=== PATIENT | male | born 1945 | race Caucasian/White ===

== ENCOUNTER 2017-05-06 19:29 | Inpatient (IN) | payer OTHER, MEDICAID ==
[~2017-05-06] VITALS: Ht 172.7 cm; Wt 76.3 kg
[~2017-05-06 19:29] MED LIST: ALBUTEROL0.09 MG/A2 IH; ALD25 PO; ASPIR 8181 MG PO; ATORVASTATIN CA40 M1 PO; BG MC; BREO ELLIPTA1 PO1 IH; COL100 PO; COZAAR100 MG PO; D-20001 TAB PO; DEXPF IV; DULCOLAX5 MG PO; FLA500 PO; FLO4 PO; FUROSEMIDE20 MG PO; GABAPENTIN100 M2 PO; GABAPENTIN300 M3 PO; GLIPIZIDE10 MG; GLIPIZIDE10 MG PO; GLU10XL PO; GOOD SENSE ASPI81 M3 PO; HUMULIN R100 U/1 M1 SC; LAC PO; LAC30L PO; LASIX20 MG PO; LEVAQUIN500 MG PO; LIPI10 PO; LORAZEPAM1 MG PO; LOSARTAN POTAS100 M1 PO; MEDDP PO; METFORMIN HCL1000 MG PO; METFORMIN1000 M1 PO; NEU300 PO; PRE10 PO; PREDNISONE1 MG PO; PREDNISONE2.5 MG PO; PREDNISONE20 MG PO; PREDNISONE5 MG PO; PROAIR HFA0.09 MG/A1 INH; PULMICORT0.5 MG/2 M IH; Q-PAP325 MG PO; RES15 PO; SINGULAIR10 MG PO; TOP50 PO; TRAZODONE50 M1 PO; VITAMIN D32000 I2 PO; ZOS3PM IV
[2017-05-06 21:03] LABS: BASOPHIL % 0.5 % (0-2)
--- NOTE | 2017-05-06 21:13 | NUR ---
PT IS SITTING IN BED IN NAD. PT'S DAUGHTER IS BEDSIDE AND HISTORIAN. PT'S PRIMARY LANGUAGE IS COMORAN. PT'S DAUGHTER STATES THAT PT HAS HAD INCREASED WEAKNESS AND CONFUSION SINCE 05/05/17. PT HAD STARTED NEW MEDICATION YESTERDAY BUT DAUGHTER STATES CONFUSION STARTED PRIOR TO THAT. PT'S DAUGHTER STATES THAT PT HAD MECH FALL LAST NIGHT WITH NO LOC, HITTING HIS HEAD AND BACK. NO DEFORMITIES NOTED. PT PLACED ON PRODUCTION SUPPORT SUPERVISOR, CALL LIGHT IS WITHIN REACH. WILL CONTINUE TO MONITOR.
[2017-05-06 21:20] LABS: PLATELET COUNT 524 x10^3mcL (130-400)
[2017-05-06 21:32] LABS: ALKALINE PHOSPHATASE 55 U/L (46-116); ALT/SGPT 11 U/L (16-63); AST/SGOT 14 U/L (15-37); BILIRUBIN TOTAL 0.2 mg/dL (0.20-1.00); CALCIUM 9.1 mg/dL (8.5-10.1); CHLORIDE SERUM 102 mmol/L (98-107); CREATININE SERUM 1.1 mg/dL (0.7-1.3); GLUCOSE SERUM 87 mg/dL (74-106); POTASSIUM SERUM 4.8 mmol/L (3.5-5.1); SODIUM SERUM 143 mmol/L (136-145)
[2017-05-06 21:33] LABS: CK-MB 1.8 ng/mL (0-3.6)
[2017-05-06 21:34] LABS: ALBUMIN 2.6 g/dL (3.4-5.0)
[2017-05-06 21:35] LABS: CARBON DIOXIDE 40.7 mmol/L (21-32)
--- NOTE | 2017-05-06 22:10 | NUR ---
PT'S DAUGHTER CONTACT INFORMATION. TOSHA CELL PHONE [phone] WORK NUMBER [phone]
[2017-05-06] MEDS ORDERED: FLA500 PO (22:19)
[2017-05-06] MEDS ORDERED: GLIPIZIDE10 M2 PO (22:19)
[2017-05-06] MEDS ORDERED: TRAZODONE50 M1 PO (22:19)
[2017-05-06] MEDS ORDERED: CEPHALEXIN500 MG PO (22:20)
[2017-05-06] MEDS ORDERED: DITROPAN XL5 MG PO (22:20)
[2017-05-06] MEDS ORDERED: TOPROL XL25 MG PO (22:21)
[2017-05-06] MEDS ORDERED: GLIMEPIRIDE2 M1 PO (22:21)
[2017-05-06] MEDS ORDERED: LOSARTAN POTAS100 M1 PO (22:21)
[2017-05-06] MEDS ORDERED: ATORVASTATIN CA20 M1 PO (22:21)
[2017-05-06] MEDS ORDERED: MONTELUKAST SOD10 M1 PO (22:22)
[2017-05-06] MEDS ORDERED: METFORMIN HYD1000 M2 PO (22:22)
[2017-05-06] MEDS ORDERED: FUROSEMIDE20 MG PO (22:22)
[2017-05-06] MEDS ORDERED: TAMSULOSIN HYD0.4 M1 PO (22:22)
[2017-05-06] MEDS ORDERED: NEU300 PO (22:23)
[2017-05-06] MEDS ORDERED: LORAZEPAM0.5 MG PO (22:23)
--- NOTE | 2017-05-06 23:05 | NUR ---
REPORT CALLED TO [facility]. ALL QUESTIONS AND CONCERNS ADDRESSED.
[2017-05-06 23:27] LABS: microscopic required? YES; urine erythrocyte 2+ (NEGATIVE)
[2017-05-06 23:53] LABS: AMPHETAMINE QUAL UR NONE DETECTED (NEG <=1000)
[2017-05-07] VITALS (7 sets, daily range): BP systolic 104–134; BP diastolic 50–65
--- NOTE | 2017-05-07 00:17 | NUR ---
RECEIVED PT FROM ED VIA DEONTE. TELE 34 PLACED ON PT READING NSR. IV NOTED TO RFA PATENT AND INTACT. CALL LIGHT WITHIN REACH. BED IN LOWEST POSITION AND SIDE RAILS UPX 2
--- NOTE | 2017-05-07 01:55 | NUR ---
LATE ENTRY: 0000H - AWAKE, ALERT, ABLE TO STATE NAME, . CONFUSED. SINUS RHYTHM ON TELE. BED ALARM ON. HOB ELEVATED 30 DEG. UPPER SIDE RAILS RAISED, BED IN LOWEST POSITION. INSTRUCTED ON USE OF CALL LIGHT TO CALL FOR ASSISTANCE, PLACED WITHIN EASY REACH. SALINE LOCK TO RIGHT ARM. BREATHING EVEN AND UNLABORED.
--- NOTE | 2017-05-07 02:34 | NUR ---
ON FALL PRECAUTIONS, SCDS TO BLE.
[2017-05-07 02:45] LABS: MAGNESIUM 2.1 mg/dL (1.8-2.4); PHOSPHOROUS 4.4 mg/dL (2.5-4.9)
[2017-05-07 02:47] LABS: CHOLESTEROL/HDL RATIO 3.2
[2017-05-07 02:51] LABS: FREE T4 1.12 ng/dL (0.76-1.46); FREE THYROXINE INDEX 2.4 ug/dL (1.4-4.5); T4(THYROXINE) 6.9 ug/dL (4.7-13.3)
--- NOTE | 2017-05-07 02:55 | NUR ---
LATE ENTRY: 0030H - FEET OFFLOADED FROM BED WITH PILLOWS.
--- NOTE | 2017-05-07 02:55 | NUR ---
EYES CLOSED, BREATHING EVEN AND UNLABORED. HOB KEPT ELEVATED 30 DEG. CALL LIGHT WITHIN EASY REACH.
[2017-05-07 02:59] LABS: T3 TOTAL 0.9 ng/mL
[2017-05-07 06:43] LABS: BASOPHIL % 0.3 % (0-2)
--- NOTE | 2017-05-07 06:45 | NUR ---
INFORMED DR. ARMIJO VIA PAGE GATE PT UNABLE TO TOLERATE BEING FLAT ON BED. ULTRASOUND UNABLE TO DO US CAROTID AND US KIDNEY. SQUEEGEER AND FORMER STATED THEY WILL COME BACK LATER AND TRY. ALSO INFORMED DR. ARMIJO VIA PAGE GATE THAT GLIPIZIDE HELD DUE TO BLOOD SUGAR ONLY 72 THIS AM.
[2017-05-07 06:51] LABS: PLATELET COUNT 467 x10^3mcL (130-400)
[2017-05-07 07:01] LABS: CALCIUM 8.9 mg/dL (8.5-10.1); CARBON DIOXIDE 38.5 mmol/L (21-32); CHLORIDE SERUM 103 mmol/L (98-107); GLUCOSE SERUM 69 mg/dL (74-106); PHOSPHOROUS 4.7 mg/dL (2.5-4.9); POTASSIUM SERUM 4.5 mmol/L (3.5-5.1); SODIUM SERUM 143 mmol/L (136-145)
--- NOTE | 2017-05-07 08:04 | NUR ---
RECEIVED PT FROM NIGHT NURSE IN NO ACUTE DISTRESS. AAOX3, APPEARS TO BE CONFUSED. HUNTER IN PLACE DRAINING YELLOW URINE. COLONOSCOPY IN PLACE, C/D/I. IVF INFUSING AT BEDSIDE. BED IN LOWEST POSITION. CALL LIGHT WITHIN REACH. WILL CONTINUE TO MONITOR.
--- NOTE | 2017-05-07 12:00 | NUR ---
HEEL FLOATER APPLIED TO R FOOT PER DR GARCIA
--- NOTE | 2017-05-07 14:01 | NUR ---
REHAB NOTES RECEIVED CANCELLATION ORDER FOR SWALLOW EVAL.
--- NOTE | 2017-05-07 18:53 | NUR ---
PT ASLEEP IN BED IN NO ACUTE DISTRESS. RESPIRATIONS EVEN AND UNLABORED ON 3L VIA NC. HEEL FLOATER IN PLACE TO R FOOT. SCD IN PLACE TO LLE. IVF INFUSING AT BEDSIDE. BED IN LOWEST POSITION. CALL LIGHT WITHIN REACH. WILL CONTINUE TO MONITOR.
--- NOTE | 2017-05-07 19:15 | NUR ---
WITH ORDERS TO OBTAIN MEDICAL RECORDS FROM [facility]. PT UNABLE TO SIGN FOR SELF. CALLED DAUGHTER JOSE BATISTA, LEFT MESSAGE TO CALL BACK.
--- NOTE | 2017-05-07 20:22 | NUR ---
RESP THERAPIST PLACED PT ON O2 VIA NASAL CANNULA DUE TO LOW O2 SAT. INSTRUCTED PT TO KEEP NASAL CANNULA ON. NOTED O2 SAT 100% ON OXYGEN.
--- NOTE | 2017-05-07 21:26 | NUR ---
PT UNABLE TO TAKE PO MEDS. VERY DROWSY, BARELY ABLE TO OPEN EYES WITH STRONG TACTILE STIMULI. BP 107/57, MAP 85, ME 98, O2 SAT 95% ON 2LPM OF O2 VIA NC. TEMP 98.9F RR 20. NOTED PT HAS RIGHT FACIAL DROOP. INFORMED DR. ARMIJO. DR. ARMIJO WENT INTO PT'S ROOM TO ASSESS PT. SHE STATED SHE WILL PUT IN NEW ORDERS.
--- NOTE | 2017-05-07 22:28 | NUR ---
CALLED RADIOLOGY REGARDING CT SCAN OF HEAD ORDERED. OPERATIONS SUPPORT SPECIALIST STATED THEY ARE AWARE OF ORDER AND WILL COME UP SOON THEY CAN.
--- NOTE | 2017-05-07 23:00 | NUR ---
BACK FROM CT. TRANSFERRED TO ROOM 255A. OPENS EYES SPONTANEOUSLY, BUT STILL VERY DROWSY. HOB KEPT ELEVATED 30 DEG. CALL LIGHT WITHIN EASY REACH. ON FALL PRECAUTIONS.
--- NOTE | 2017-05-08 01:52 | NUR ---
EYES CLOSED, BREATHING EVEN AND UNLABORED. ON 2LPM OF O2 VIA NC. NO MOANING OR GRIMACING NOTED. HOB KEPT ELEVATED 30 DEG. CALL LIGHT WITHIN EASY REACH. BED ALARM ON.
--- NOTE | 2017-05-08 04:51 | NUR ---
OPENED EYES SPONTANEOUSLY. AWAKE AND ALERT, SPEECH CLEAR. ASKED FOR WATER, DRANK WITHOUT COUGHING OR CHOKING. ASKED WHAT TIME IT WAS.
--- NOTE | 2017-05-08 05:26 | NUR ---
EYES CLOSED, BREATHING EVEN AND UNLABORED. HOB KEPT ELEVATED 30 DEG. ON 2LPM OF O2 VIA NC.
[2017-05-08 06:06] VITALS: BP 130/66
--- NOTE | 2017-05-08 06:14 | NUR ---
EYES CLOSED, OPENED EYES TO TACTILE STIMULI, BUT UNABLE TO TAKE PO MEDS TOO DROWSY. INFORMED DR. ARMIJO VIA PAGE GATE.
--- NOTE | 2017-05-08 06:49 | NUR ---
AWAKE AND ALERT, ABLE TO TAKE PO MEDS WITHOUT DIFFICULTY. ASKED TO TURN TV ON. WATCHING TV AT THIS TIME.
[2017-05-08 07:11] LABS: BASOPHIL % 0.3 % (0-2)
--- NOTE | 2017-05-08 07:16 | NUR ---
eyes closed, breathing even and unlabored on 2lpm of o2 via nc. zflex boot to right foot.
--- NOTE | 2017-05-08 07:18 | NUR ---
endorsed to nurse sanchez
[2017-05-08 07:27] LABS: CARBON DIOXIDE 39.8 mmol/L (21-32); CHLORIDE SERUM 103 mmol/L (98-107); CREATININE SERUM 0.9 mg/dL (0.7-1.3); GLUCOSE SERUM 95 mg/dL (74-106); POTASSIUM SERUM 4.3 mmol/L (3.5-5.1); SODIUM SERUM 142 mmol/L (136-145)
--- NOTE | 2017-05-08 07:40 | NUR ---
RC'D PT RESTING IN BED WITH NO APPARENT SIGNS OF DISTRESS. A/A/O/X3, SPEECH CLEAR AND APPROPRIATE. PT CONFUSED AT TIMES. ON TELE WITH SR. DENIES CHEST PAIN/PRESSURE. PALP PULSES, TRACE EDEMA NOTED. RESPIRATIONS EQUAL AND SLIGHTY LABORED. LUNGS DIM IN BASES. ON 2L O2 VIA NC. PT REPORTS HAVING DIFFICULTY BREATHING AT TIMES BUT DENIES AT THIS TIME. RT PROTOCOL. ABDOMEN SOFT AND NONTENDER. COLOSTOMY TO LEFT ABDOMEN. ACTIVE BS. DENIES N/V. HUNTER CATHETER IN PLACE, YELLOW URINE NOTED. LIMITED ROM TO RLE. HEEL PROTECTOR BOOT IN PLACE. SKIN W/D. DECUBITIS HEEL, BLACK IN COLOR. REDNESS IN TOE. DENIES PAIN AT THIS TIME. IV PATENT AND INFUSING. BED IN LOW POSITION. EDUCATED ON USING CALL LIGHT WHEN NEEDING ASSISTANCE. CALL LIGHT IN REACH. PT VERBALIZED UNDERSTANDING. WILL CONTINUE TO MONITOR.
[2017-05-08 07:49] LABS: PLATELET COUNT 421 x10^3mcL (130-400); RED CELL DISTRIBUTION WIDTH 16.9 % (11.5-14.5)
--- NOTE | 2017-05-08 08:27 | NUR ---
PT COMPLAINING OF DIFFICULTY BREATHING. RT NOTIFIED AND MADE AWARE. WILL PROCEED WITH BREATHING TX.
[2017-05-08 10:00] VITALS: BP 134/61
[2017-05-08 12:22] VITALS: BP 113/54
--- NOTE | 2017-05-08 12:44 | NUR ---
PT RESTING IN BED WITH NO APPARENT SIGNS OF DISTRESS. RESPIRATIONS EQUAL AND UNLABORED. CALL LIGHT IN REACH. BED IN LOW POSITION. WILL CONTINUE TO MONITOR.
--- NOTE | 2017-05-08 16:21 | NUR ---
PHYSICAL THERAPY DAILY NOTES CO-SIGN All documentation done by the Cloth Desizing Range Tender for 05/08/17 has been reviewed. I agree with the documentation. Reviewed/Co-Signed by: Naresh Cantor PT Documentation Done by:PRICE CHILDS DIRECTOR OF PROGRAMMING POC REVIEWED W/ DIRECTOR OF PROGRAMMING; WILL BENEFIT W/ P.T. AFTER ACUTE STAY; PROGRESS [facility]AN[place].
--- NOTE | 2017-05-08 16:43 | NUR ---
FAMILY PRESENT AT BEDSIDE. PT RESTING IN BED WITH NO APPARENT SIGNS OF DISTRESS. DENIES SOB AT THIS TIME. CALL LIGHT IN REACH. WILL CONTINUE TO MONITOR.
--- NOTE | 2017-05-08 17:45 | NUR ---
NOTIFIED BY LAB THAT PT'S FOOT WOUND CULTURE IS POSITIVE FOR MRSA. DR WOODALL NOTIFIED AND MADE AWARE. PT RELOCATED TO ISOLATION ROOM. WILL CONTINUE TO MONITOR.
--- NOTE | 2017-05-08 18:59 | NUR ---
PT RESTING IN BED WITH NO APPARENT SIGNS OF DISTRESS. ON TELE WITH SR. DENIES CHEST PAIN/PRESSURE. RESPIRATIONS EQUAL AND UNLABORED. ON 2L O2 VIA NC, DENIES SOB. HUNTER CATHETER IN PLACE, YELLOW URINE. 2 FLEX PRESSURE REDUCING BOOT IN PLACE. IV PATENT AND INFUSING. BED IN LOW POSITION. CALL LIGHT IN REACH. WILL ENDORSE TO EXTRACTIONS TECHNICIAN RN.
--- NOTE | 2017-05-08 20:00 | NUR ---
AWAKE AND RESPONSIVE TO VERBAL STIMULI. SKIN WARM ANDD RY TO TOUCH. RESPIRATION EVEN AND UNLABORED. STILL WITH ON AND OFF DESATURATION. MAINTAINED ON O2 AT 2L/NC. COLOSTOMY INTACT AT THE LEFT ABDOMINAL WALL. NO S/S OF PAIN/DISCOMFORT. WILL CONTINUE TO MONITOR.
[2017-05-08 21:24] VITALS: BP 129/65
--- NOTE | 2017-05-09 00:01 | NUR ---
CONTINUES ON ATB IPB FOR MANAGEMENT OF RIGHT FOOT CELLULITIS. TOLERATED ORAL FLUIDS. NO S/S OF ASPIRATION NOTED. WILL CONTINUE TO MONITOR.
[2017-05-09 05:55] VITALS: BP 119/63
--- NOTE | 2017-05-09 06:45 | NUR ---
CONTINUES ON ATB IVPB WITHOUT ADVERSE REACTION. KEPT CLEAN AND DRY. ALL NEEDS ATTENDED.
[2017-05-09 07:55] LABS: BASOPHIL % 0.4 % (0-2)
[2017-05-09 08:11] LABS: PLATELET COUNT 428 x10^3mcL (130-400); RED CELL DISTRIBUTION WIDTH 16.9 % (11.5-14.5)
[2017-05-09 08:21] LABS: CALCIUM 9.1 mg/dL (8.5-10.1); CARBON DIOXIDE 39.5 mmol/L (21-32); CHLORIDE SERUM 102 mmol/L (98-107); CREATININE SERUM 0.9 mg/dL (0.7-1.3); GLUCOSE SERUM 80 mg/dL (74-106); SODIUM SERUM 145 mmol/L (136-145)
--- NOTE | 2017-05-09 08:57 | NUR ---
AT 0857 ROUNDS [address]ERE DONE WITH [address] WINSLOW AND THE MEDICINE TEAM. THE PT WILL BE STAYING FOR IV ANTIBIOTICS WHILE WE WAIT FOR THE WOUND CULTURE, THEN HE WILL BE DISCHARGED OR TRANFERRED.
--- NOTE | 2017-05-09 09:58 | NUR ---
CHANGED COLOSTOMY BAG TO LEFT ABDOMEN WITH 1/2 FILLED OF SOFT PASTY BROWN STOOL.
[2017-05-09 10:16] VITALS: BP 105/46
[2017-05-09 11:24] VITALS: BP 105/46
--- NOTE | 2017-05-09 11:25 | NUR ---
CHANGED DRESSING ACCORDING TO DR ORDER. CLEANED RIGHT BACK OF HEEL WOUND WITH BETADINE AND APPLIED BETADINE SOAKED 4" GAUZE TO HEEL WITH ADAPTIC ON TOP, ANOTHER 2 DRY 4" GAUZE THEN LORI WRAP. DRESSING CDI. PT TOLERATED PT WELL, HAS BEEN IN CHAIR AT BEDSIDE.
[2017-05-09 13:38] VITALS: BP 116/55
[2017-05-09 16:46] VITALS: BP 114/58
--- NOTE | 2017-05-09 18:18 | NUR ---
AAO TIMES 4. TELE # [address] 'S STABLE. O2 2L NC. COLOSTOMY DRAINING BROWN SOFT STOOL TO DRAINAGE BAG. NO C/O PAIN. NO SOB. IV SITE CDI.
--- NOTE | 2017-05-09 20:00 | NUR ---
AWAKE AND VERBALLY RESPONSIVE WITH PERIODS OF CONFUSION AND FORGETFULNESS. RESPIRATION EVEN AND UNLABORED . NO S/S OF RESPIRATORY DISTRESS. HUNTER CATH TO BSD WITH YELLOW URINE OUTPUT. NO HEMATURIA NOTED. WILL CONTINUE TO MONITOR.
[2017-05-09 21:06] VITALS: BP 128/65
--- NOTE | 2017-05-09 22:38 | NUR ---
RECEIVED PATIENT ON HOSPITAL BED ACCOMPANIED AT THIS TIME BY PRIMARY NURSE JAIDEN AND FAHEEM LEAVITT. PATIENT OBSERVED ON BIPAP MASK WITH SHALLOW BREATHING, LUNG SOUNDS ARE DIMINISHED BILATERALLY, S1, S2 AUSCULTATED. AT THE BEDSIDE: PRIMARY RN, FAHEEM RN, CHARGE NURSE LONDON, RT SANTOS, RT GIAN, RT , EMMETT RN, DELVIN RN, IDA RN, AND MYSELF. PATIENT TRANSFERRED TO ICU BED VIA DRAWSHEET METHOD WITHOUT INCIDENT. PATIENT IS FOB AT THIS TIME. PATIENT HOOKED UP TO MONITORING EQUIPMENT WITH IMMEDIATE VITAL SIGNS READING: TEMP 98.2 (AXILLARY), HR 97, BP 129/66, RR 18, O2 96%. PATIENT WITH GCS 7; PATIENT DOES NOT OPEN EYES AT THIS TIME, PATIENT IS NONVERBAL, AND LOZALIZES TO PAINFUL STIMULI. PATIENT DOES NOT RESPOND TO QUESTIONS, PATIENT DOES NOT FOLLOW COMMANDS. SKIN IS WTT, DRY. PERIPHERAL PULSES ARE MODERATE TO BUE AND WEAK TO BLE. ACTIVE LIMITED ROM X 4 EXTREMITIES DUE TO ALOC. PATIENT'S ABDOMEN IS SOFT, FLAT, NONTENDER PER FLACC SCALE. ACTIVE BOWEL SOUNDS X 4Q. COLOSTOMY BAG NOTED TO LLQ. SMALL AMOUNT OF SOFT, DARK, BROWN STOOL NOTED IN BAG. HUNTER CATHETER IN PLACE/SECURED WITH SMALL AMOUNT OF YELLOW URINE DRAINING TO GRAVITY DRAINAGE BAG. NO PENILE DISCHARGE/NO SCROTAL EDEMA NOTED. BLACK, DRY, THICKENED SKIN NOTED TO RT HEEL. LT GREAT TOE OBSERVED WITH BLACK DISCOLORATION. YELLOW, DISCOLORED SKIN ON BILATERAL FEET OBSERVED. THICKENED TOE NAILS OBSERVED BILATERALLY. ED DOCTOR CAROLYN SOOD FOR INTUBATION. WILL REMAIN AT BEDSIDE. DR CAROLYN SOOD.
--- NOTE | 2017-05-10 00:01 | NUR ---
CONTINUES ON ATB IVPB FOR MANAGEMENT OF RIGHT FOOT CELLULITIS WITHOUT ADVERSE REACTION NOTED. TOLERATED ORAL FLUIDS. NO S/S OF ASPIRATION NOTED.
--- NOTE | 2017-05-10 06:23 | NUR ---
NEEDS FREQUENT VISUAL CHECK FOR SAFETY. CALL LIGHT WITHIN REACH AT ALL AT ALL TIMES. KEPT CLEAN AND DRY.
[2017-05-10 07:13] LABS: BASOPHIL % 0.3 % (0-2)
[2017-05-10 07:15] LABS: CALCIUM 9.3 mg/dL (8.5-10.1); CHLORIDE SERUM 101 mmol/L (98-107); CREATININE SERUM 0.9 mg/dL (0.7-1.3); GLUCOSE SERUM 84 mg/dL (74-106); POTASSIUM SERUM 3.9 mmol/L (3.5-5.1); SODIUM SERUM 142 mmol/L (136-145)
[2017-05-10 07:24] LABS: PLATELET COUNT 407 x10^3mcL (130-400); RED CELL DISTRIBUTION WIDTH 16.8 % (11.5-14.5)
--- NOTE | 2017-05-10 08:03 | NUR ---
CONFUSED, REMOVED HIS GOWN. TELE # [address] LUNGS WITH FINE AND COURSE CRACKLES BILATERALLY. O2 SAT ON 2L NC 93%. FREQUENT ROUNDS, BED ALARM ON. IV SITE CDI. DRESSING TO RIGHT HEEL CDI, WITH FLOATER BOOT. PERIPHERAL PULSES PALPABLE. NO EDEMA. BED ALARM ON, WITH FREQUENT ROUNDING.
--- NOTE | 2017-05-10 09:33 | NUR ---
THE PLAN TODAY IS TO GET AN ABG, A CRITICAL WAS CALLED TO ME AT 0735 FOR CO2 OF 42 FROM HIS CMP. ALSO WE ARE TRYING TO PLACE HIM IN A SNF FOR IV ANTIBIOTICS, WOUND CARE AND PT, PT ALSO HAS MRSA OF HIS FOOT WOUND.
[2017-05-10 10:50] VITALS: BP 108/51
--- NOTE | 2017-05-10 10:54 | NUR ---
PT WAS AGITATED AND TRYING TO GET OOB. ALSO HE SCRATCHED ONE SCRIPT EDITOR AND WAS YELLING. I GAVE HIM 0.5 MG PO OF ATIVAN AT 1043. AT 1154 HE WAS A LITTLE BIT CALMER.
--- NOTE | 2017-05-10 10:57 | NUR ---
PT AGITATED, TRYING TO GET OOB AND TRYING TO HIT NURSES. HE SCRATCHED THE NURSES AID. I GAVE HIM ATIVAN 0.5 MG PO AT 1054.
--- NOTE | 2017-05-10 11:20 | NUR ---
ON PT'S PCO2, FROM HIS ABG, HIS PCO2 IS 67.4, I NOTIFIED DR LION, ORDERS WILL FOLLOW.
--- NOTE | 2017-05-10 15:19 | NUR ---
PT IS GETTING AGITATED, YELLING, TRYING TO GET OOB. KARLA STAHL RN CALLED DR WOODALL, HE INCREASED THE DOSE OF ATIVAN. WILL BE GIVEN ORDERED.
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
--- NOTE | 2017-05-10 17:20 | NUR ---
RT APPLIED BIPAP ORDERED. 05/06 AND 50% FI02. TOLERATING FAIRLY.
--- NOTE | 2017-05-10 18:21 | NUR ---
AGITATED, REMOVED BIPAP. WE ARE TRYING TO CALM HIM DOWN. TELE #[address] HE IS WEARING THE BIPAP AGAIN. NO C/O PAIN. HE IS CALMER NOW. IV SITE RFA CDI.
--- NOTE | 2017-05-10 19:57 | NUR ---
AWAKE BUT VERY CONFUSED AND IDSORIENTED. COMBATIVE /RESISTIVE TO CURRENT PLAN OF CARE. LUNGS WITH COARSE CRACKLES TO BLATERAL BASES, KEEPS ON REMVING BIPAR, DR WOODALL MADE AWARE AND ORDERED HALDOL AWAITNG FOR THE PHARMACIS TO VEREFY, NEEDS CONSTANT VISUAL CHECK FOE SAFETY. WILL CONTINUE TO MONITOR.
[2017-05-10 20:00] VITALS: BP 124/65
--- NOTE | 2017-05-10 21:21 | NUR ---
ABG RESULT GIVEN TO DR. WILLARD.
[2017-05-10 21:26] VITALS: BP 101/52
--- NOTE | 2017-05-10 21:45 | NUR ---
PT NON-VERBALLY RESPONSIVE. ABG RESULT IN ND DR WILLARD MADE AWARE AND ORDERED TO TRANFER TO ICU. REPORT GIVEN TO FIELD TECHNICAL SPECIALIST.
--- NOTE | 2017-05-10 22:00 | NUR ---
CONTINUES ON ATB IVPVB ORDERED FOR MANAGEMENT OF RIGHT FOOT CELLULITIS. NO ADVERSE REACTION NOTED. WILL CONTINUE TO MONITOR.
[2017-05-10 22:21] VITALS: BP 123/62
--- NOTE | 2017-05-10 22:50 | NUR ---
PATIENT NON-VERBALLYN RESPONSIVE, RESPONDS ONLY TO PAINFUL STIMULI. DR WILLARD, MADE AWARE, REPEAT ABG RESULT IN , ORDERED TO TRANSFER TO ICU, REPORT GIVEN TO CAPACITOR ASSEMBLER .
--- NOTE | 2017-05-10 23:00 | NUR ---
INTUBATION NOTE 2300: ED DOCTOR CAROLYN AT BEDSIDE WITH DR WILLARD, RT GIAN, RT SANTOS, RT , DELVIN RN, EMMETT RN, AND MYSELF. 2301: 20MG ATOMIDATE GIVEN IVP PER DR LEON VERBAL ORDER, FOLLOWED BY 10ML SALINE FLUSH IVP BY IDA RN. 100MG SUCCYHOLINE GIVEN IVP PER DR LEON VERBAL ORDER, FOLLOWED BY 10ML SALINE FLUSH IVP IVP BY IDA LEAVITT. 2306: PATIENT INTUBATED AT THIS TIME BY DR LEON PATIENT HOOKED UP TO VENTILATOR WITH THE FOLLLOWING SETTINGS: AC MODE VT 500, RATE 14, PEEP 5, FIO2 100%
--- NOTE | 2017-05-10 23:00 | NUR ---
PT PLACED ON SOFT WRIST RESTRAINTS FOR PT SAFETY. PT AGITATED, ATTEMPTS TO GET OUT OF BED AND ATTEMPTS TO PULL AT LINES. WILL MONITOR PT CLOSELY.
[2017-05-10 23:10] VITALS: BP 129/66
--- NOTE | 2017-05-10 23:19 | NUR ---
OGT PLACED BY CHARGE NURSE LONDON PER ORDER, AIR AUSCULTATED OVER GASTRIC REGION FOR PLACEMENT VERIFICATION. TO BE CONFIRMED WITH X-RAY.
[2017-05-10 23:30] VITALS: BP 141/75
--- NOTE | 2017-05-10 23:31 | NUR ---
XRAY AT BEDSIDE
--- NOTE | 2017-05-10 23:40 | NUR ---
ABG DRAWN BY DR MONTSE PATE AWARE OF RESULTS.
[2017-05-11] VITALS (19 sets, daily range): BP systolic 85–128; BP diastolic 45–453; Ht 172.7 cm; Wt 76.3 kg
--- NOTE | 2017-05-11 01:00 | NUR ---
RT AT BEDSIDE.
[2017-05-11 03:11] LABS: BASOPHIL % 0.4 % (0-2)
[2017-05-11 03:13] LABS: PLATELET COUNT 433 x10^3mcL (130-400); RED CELL DISTRIBUTION WIDTH 16.9 % (11.5-14.5)
[2017-05-11 03:20] LABS: CALCIUM 9.2 mg/dL (8.5-10.1); CHLORIDE SERUM 101 mmol/L (98-107); CREATININE SERUM 1.1 mg/dL (0.7-1.3); GLUCOSE SERUM 72 mg/dL (74-106); POTASSIUM SERUM 3.9 mmol/L (3.5-5.1); SODIUM SERUM 145 mmol/L (136-145)
--- NOTE | 2017-05-11 03:55 | NUR ---
CRITICAL LABS: CO2 42.6, VANCO TROUGH 20.4, REPORTED TO DR WILLARD. VANCOMYCIN WITHELD. WILL CONTINUE TO MONITOR.
[2017-05-11 03:58] LABS: CARBON DIOXIDE 42.6 mmol/L (21-32)
--- NOTE | 2017-05-11 05:00 | NUR ---
DR ARMIJO AT BEDSIDE TO START CENTRAL LINE PLACEMENT.
--- NOTE | 2017-05-11 05:30 | NUR ---
PATIENT BOLUSED WITH [address] ML [address] BY DR ARMIJO PRIOR TO CENTRAL LINE PLACEMENT. PROPOFOL TITRATED TO 16 MCG/KG/MIN FOR OPTIMAL SEDATION AND PATIENT COMFORT. WILL CONTINUE TO MONITOR.
--- NOTE | 2017-05-11 05:40 | NUR ---
TIMEOUT PERFORMED AT THIS TIME FOR CENTRAL LINE PLACEMENT BY DR ARMIJO. ULTRASOUND AT BEDSIDE FOR GUIDED PLACEMENT. VITAL SIGNS STABLE AT THIS TIME. WILL CONTINUE TO MONITOR.
--- NOTE | 2017-05-11 05:45 | NUR ---
DR GUZMAN AT BEDSIDE FOR ASSESSMENT.
--- NOTE | 2017-05-11 06:45 | NUR ---
RIJ CENTRAL LINE UNSUCCESSFUL AT THIS TIME. PATIENT IS RESTING IN BED. HOB ELEVATED. BED IN LOWEST POSITION. SIDE RAILS X 3. VITAL SIGNS STABLE AT THIS TIME.
--- NOTE | 2017-05-11 07:15 | NUR ---
REPORT GIVEN TO POWER LEAVITT, UPDATES PROVIDED, ALL QUESTIONS AND CONCERNS ADDRESSED, ALL CARE ENDORSED.
--- NOTE | 2017-05-11 07:31 | NUR ---
BEDSIDE REPORT RECEIVED FROM [facility] SHIFT NURSE. PATIENT ON ETT TO VENT, AC MODE 500/16/15, FIO2 50%, SPO2 100%. PATIENT AROUSABLE VIA VERBAL STIMULI, ABLE TO FOLLOW SIMPLE COMMANDS, PERRL, BRISK 3MM. DENIES PAIN, TELE# 01, HR 92. OGT CLAMPED, ABDOMEN ROUND/SOFT, COLOSTOMY TO LLQ LEAKING, HYGIENE PROVIDED, GOWN AND LINEN CHANGED, COLOSTOMY BAG REPLACED. HUNTER CATHETER IN PLACE TO GRAVITY WITH YELLOW COLORED URINE. HEEL PROTECTANT BOOT TO RIGHT HEEL, LEFT HEEL OFF LOADED WITH PILLOW X1. BILATERAL SOFT WRIST RESTRAINTS IN PLACE, CALL LIGHT WITHIN REACH, WILL CONTINUE TO MONITOR.
--- NOTE | 2017-05-11 08:05 | NUR ---
DR CANNON IN TO ASSESS PATIENT AT THIS TIME. PER DR CANNON OK TO USE OGT AND WILL INITIATE TUBE FEEDING. WILL CONTINUE TO MONITOR.
--- NOTE | 2017-05-11 09:20 | NUR ---
ROUNDS MADE AT THIS TIME WITH MD TEAM, CHARGE NURSE ARIANNE, AND DR ORTA. PATIENT RESTING, NO SIGNS OF DISTRESS NOTED, WILL CONTINUE TO MONITOR.
--- NOTE | 2017-05-11 09:22 | NUR ---
DR. ORTA, RESIDENTS, INDUSTRIAL BOILERMAKER AND PRIMARY RN AT BEDSIDE FOR MORNING ROUNDS. PLAN OF CARE DISCUSSED. WILL CONT TO MONITOR.
--- NOTE | 2017-05-11 11:45 | NUR ---
DR FARAH SPOKE WITH PATIENT'S DAUGHTER AT THIS TIME FOR CONSENT FOR CENTRAL LINE PLACEMENT, DAUGHTER AGREES WITH INSERTION, WILL CONTINUE TO MONITOR.
--- NOTE | 2017-05-11 11:49 | NUR ---
DR LORA AT BEDSIDE TO PERFORM CENTRAL LINE CHANGE AT THIS TIME WITH DR FARAH. PATIENT IS RESISTANT TO TURN HEAD FOR PROCEDURE, PROPOFOL INCREASED TO 20 MCG AT THIS TIME FOR COMFORT. BP 112/56, HR 84, SPO2 99%, RR 18, WILL CONTINUE TO MONITOR.
--- NOTE | 2017-05-11 12:39 | NUR ---
PT. IS WITH GUIDO FLORES FOR PROCEDURES, WILL VISIT PT LATER. DISCUSSED WITH PRIMARY RN AND WILL CONTINUE TO FOLLOW WITH MATERIAL MIXER ORDERS AT THIS TIME.
--- NOTE | 2017-05-11 12:41 | NUR ---
PROPOFOL STOPPED FOR BP 85/45 (60), HR 86, RR 16, SPO2 98%. PATIENT RESTING, NO SIGNS OF DISTRESS NOTED, WILL CONTINUE TO MONITOR.
--- NOTE | 2017-05-11 12:55 | NUR ---
XRAY AT BEDSIDE.
--- NOTE | 2017-05-11 13:49 | NUR ---
PROPOFOL RESTARTED AT THIS TIME AT 10 MCG. PATIENT CONSTANTLY SHIFTING, OPENS EYES, AND KICKING, BP 135/74 (100), HR 102. WILL CONTINUE TO MONITOR.
--- NOTE | 2017-05-11 14:01 | NUR ---
PROPOFOL TITRATED UP TO 20 MCG FOR RESTLESSNESS. WILL CONTINUE TO MONITOR.
--- NOTE | 2017-05-11 14:40 | NUR ---
NUTREN PULMONARY TUBE FEEDING STARTED AT THIS TIME PER MD ORDER AT AN INITIAL RATE OF 10 ML/HR WITH FWF 4OML Q4HRS. PATIENT REPOSITIONED TO LEFT SIDE AT THIS TIME, PROPOFOL TITRATED TO 15 MCG PER SEDATION SCALE. DRESSING TO RIGHT HEEL APPLIED, ALL SAFETY MEASURES IN PLACE, WILL CONTINUE TO MONITOR.
--- NOTE | 2017-05-11 15:27 | NUR ---
05/11/17 0800- DR. CANNON NOTIFIED PT'S LAST CO2 ON ABG WAS 67 DRAWN AT [address] CANNON DOES NOT WANT A REPEAT ABG AT THIS TIME. CO2 CHRONIC RETAINER. PT. IS AWAKE AND ALERT WITH NO RESP DISTRESS. WILL CONT TO MONITOR.
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
--- NOTE | 2017-05-11 16:18 | NUR ---
COLOSTOMY BAG CHANGED AT THIS TIME, BM SOFT, DARK BROWN. REPOSITIONED FOR COMFORT, ALL SAFETY MEASURES IN PLACE, BP 120/62 (82), HR 92, RR 17, SPO2 100%, FIO2 CHANGED TO 45% PER RT AT THIS TIME. ALL SAFETY MEASURES IN PLACE, WILL CONTINUE TO MONITOR.
--- NOTE | 2017-05-11 17:35 | NUR ---
DR CASANOVA IN TO ASSESS PATIENT AT THIS TIME, UPDATE GIVEN, INFORMED HER OF CXR RESULTS FOR CENTRAL LINE PLACEMENT. NO NEW ORDERS AT THIS TIME, WILL CONTINUE TO MONITOR.
--- NOTE | 2017-05-11 18:16 | NUR ---
FAMILY AT BEDSIDE, PATIENT RESTLESS, ATTEMPTING TO TALK, MOTIONS/ACKNOWLEDGES HE IS UNCOMFORTABLE TO FAMILY, PROPOFOL INCREASED TO 20 MCG/MIN AT THIS TIME. WILL CONTINUE TO MONITOR.
--- NOTE | 2017-05-11 18:30 | NUR ---
PATIENT CONTINUES TO BE RESTLESS, STATES HIS LEGS AND MOUTH ACHE, PROPOFOL INCREASED TO 30 MCG, DR CASANOVA MADE AWARE, MD TO ENTER ORDER, WILL CONTINUE TO MONITOR.
--- NOTE | 2017-05-11 19:00 | NUR ---
TUBE FEEDING INCREASED TO 20 ML/HR AT THIS TIME FOR RESIDUAL 0ML UPON ASPIRATION. DAUGHTER AND SISTER AT BEDSIDE, PATIENT RESTING, NO SIGNS OF DISTRESS NOTED, WILL CONTINUE TO MONITOR.
--- NOTE | 2017-05-11 19:07 | NUR ---
received report from james norton will endorse care
--- NOTE | 2017-05-11 19:17 | NUR ---
BEDSIDE REPORT GIVEN TO NOC SHIFT NURSE AT THIS TIME, PATIENT RESTING, FAMIL AT BEDSIDE, WILL ENDORSE CARE.
--- NOTE | 2017-05-11 19:20 | NUR ---
PT ON VENT SEDATED, RESPONDS TO PAINFUL STIMULI, PUPILS REACTIVE, GENERALIZED WEAKNESS, FULL PASSIVE ROM MENDIOLA ACTIVE DUE TO SOFT RESTRAINTS BUE. AC MODE 7.5, 24LL, FIO2 45, VT 500, PEEP 5, RR 16, TRACHEA MIDLINE, NO DRAINAGE EENT, NO COUGH OR SECRETIONS, ORAL CARE PROVIDED. RESPIRATIONS EQUAL AND UNLABORED, LUNGS CLEAR/DIMINISHED. NO DISTRESS. HR 94, BP 101/49, MAP 68, CHEST WALL STABLE, NO CP, DIZZINESS, OR SYNCOPE. SKIN APPROPRIATE FOR ETHNICITY, WARM AND DRY, CAP REFILL <3, PULSES PALPABLE. NO CONTRACTURES OR DEFORMITIES. NUTREN PULMONARY INFUSING 20ML, FWF 40ML Q4, TOLERATING. NO N/V. ABD SOFT ROUND NONTENDER, BOWEL SOUNDS ACTIVE, NO BM. F/C IN PLACE DRAINING TO GRAVITY, URINE YELLOW, NO PENIAL EDEMA OR DRAINAGE. CALM AND COOPEERATIVE, WILL CONTINUE TO MONITOR.
[2017-05-12] VITALS (17 sets, daily range): BP systolic 18–127; BP diastolic 45–72
--- NOTE | 2017-05-12 05:09 | NUR ---
TITRATED NUTREN PULMONARY TO 30ML/HR, WILL CONTINUE TO MONITOR
[2017-05-12 05:55] LABS: CALCIUM 8.4 mg/dL (8.5-10.1); CARBON DIOXIDE 36.1 mmol/L (21-32); CHLORIDE SERUM 104 mmol/L (98-107); CREATININE SERUM 1.1 mg/dL (0.7-1.3); GLUCOSE SERUM 148 mg/dL (74-106); MAGNESIUM 1.6 mg/dL (1.8-2.4); PHOSPHOROUS 3.7 mg/dL (2.5-4.9); POTASSIUM SERUM 3.1 mmol/L (3.5-5.1); SODIUM SERUM 144 mmol/L (136-145)
[2017-05-12 06:25] LABS: BASOPHIL % 0.4 % (0-2); PLATELET COUNT 312 x10^3mcL (130-400)
[2017-05-12 06:26] LABS: RED CELL DISTRIBUTION WIDTH 17.1 % (11.5-14.5)
--- NOTE | 2017-05-12 06:39 | NUR ---
BED BATH GIVEN CHG WIPES USED GOWN AND LINEN CHANGED, WILL CONTINUE TO MONITOR
--- NOTE | 2017-05-12 07:30 | NUR ---
PT IS SEDATED WITH PROPOFOL AT 30MCG/KG/MIN RSS 5, TIATRATE PROPOFOL TO 20MCG/KG/MIN TO ACHIEVE RSS 4, WILL CONTINUE TO MONITOR. RT PUPIL SLUGGISH 3MM, LT PUPIL 3MM, BRISK. NO SIGNS OF LEDBETTER. PT ON AC MODE 45%FIO2, RATE 16 PEEP 5, VT 500. PROVIDED VAP CARE. DIMINISH LUNG SOUNDS TO BL LUNG PATEL. SYMMETRICAL CHEST RISE. WHITE OUTPUT FROM INLINE. BS ACTIVE X4 QUADRANTS, NONTENDER PALPATIONS TO ABD. NO SIGNS OF BM. HUNTER CATH DRANING WELL BY GRAVITY, TEA COLOR. TRACE EDEMA TO BLE, Z FLEX BOOTS TO R HEEL. DRESSING TO R HEEL IS CDI. BED AT LOW AND CALL LIGHT WITHIN REACH.
--- NOTE | 2017-05-12 08:49 | NUR ---
DR. BETTS AT BEDSIDE TO UPDATE PLAN OF CARE.
--- NOTE | 2017-05-12 10:40 | NUR ---
PER DR. CANNON TO TURN OFF PROPOFOL TO START CPAP. VT 500 PEEK FLOW 50 PE5P 5, PSV 12. PT TOELRATING WELL.
--- NOTE | 2017-05-12 11:35 | NUR ---
PT AWAKE/ALERT, FOLLOWS VERBAL COMMAND, GESTURES APPROPRIATELY, OFF RESTRAINTS, PT MADE AWARE THAT IF HE TRIES TO PULL ON ETT THAT RESTRAINTS WOULD BE REAPPLIED, PT MADE AWARE THAT THIS IS FOR SAFETY REASONS, EDUCATED PT ON POSSIBLE COMPLICATIONS OF PULLING ON ETT TUBE, PT GESTURED IN ACKNOWLEDGEMENT.
--- NOTE | 2017-05-12 16:35 | NUR ---
VAMCOMCYIN TROUGH 20.6. DR. WOODALL MADE AWARE AND VANCOMYCIN IS STOPPED.
--- NOTE | 2017-05-12 17:07 | NUR ---
PT EXHIBITED AGITATION/RESTLESSNESS, RSS 1, RESUMED PROPOFOL AT 10MCG/KG/MIN, WILL CONTINUE TO TITRATE TO RSS 4.
--- NOTE | 2017-05-12 18:58 | NUR ---
DRESSING CHANGE IN PROGRESS.
--- NOTE | 2017-05-12 19:10 | NUR ---
REPORT GIVEN TO HERMILA LEAVITT, ENDORSED ALL CARE.
--- NOTE | 2017-05-12 19:21 | NUR ---
RECEIVED PT SEDATED WITH PROPOFOL AT 10MG/KG/MIN WITH RSS 4 GRIMACES TO STIMULATION.CARDIAC SCOPE SHOWS ST WITH HR 99 NO ECTOPIES.INTUBATED ORALLY ON FIO2 40% VT 500 AC NODE RATE 16 PEEP 5 RR 16 O2 SAT 97%.OGT PATENT WITH NUTREN PULMONARY AT 50 ML/H WITH FWF 40 Q 4H WITH NO RESIDUAL HOB ELEVATED FOR ASPIRATION PRECAUTION.ABDOMEN SOFT,NONDISTENDED AND WITH LEFT SIDE COLOSTOMY,BAG WITH SMALL DARK COLORED STOOL.HUNTER TO GRAVITY DRAINAGE BAG. LEFT FOOT WITH DRESSING DRY AND INTACT BILATERAL Z-FLEX BOOTS INPLACE.ORAL CARE DONE PER VAP PROTOCOL.CALL LIGHT WITHIN REACH AND BED ON LOW POSITION.
--- NOTE | 2017-05-12 23:19 | NUR ---
PT SEDATED ON PROPOFOL GTT AT 10 NCG/KG/MIN RSS 4 ATTEMPTED TO WEAN DOWN TO 5 MCG WOKE UP AGITATED TRYING TO COMMUNICATE BY GESTURES AND MOUTHING WORDS. CARDIAC SCOPE SR NO ECTOPIES;ST WHEN AWAKE.RECEIVING BREATHING TX PER RT SANTOS.MAINTAINING O2 SAT ABOVE 96% ON FIO2 40% WITH RR 18,NO DISTRESS WITH MINIMAL SECREATIONS VIA ETT.TOLERATING FEEDING VIA OGT WITH NO RESIDUALS PLACEMENT CHECKED WITH AIRBOLUS.HOB ELEVATED FOR ASPIRATION PRECAUTION.COLOSTOMY BAG TO LLQ INTACT WITH DARK BROWN MUCOID STOOL.RIGHT FOOT DRESSING INTACT AND DRY WITH Z-FLEX BOOTS INPLACE.REPOSITIONED WITH PILLOW SUPPORT ON BACK.CALL LIGHT WITHIN REACH.
[2017-05-13] VITALS (12 sets, daily range): BP systolic 102–126; BP diastolic 52–72
--- NOTE | 2017-05-13 03:11 | NUR ---
PT SLEEPING EASILY AROUSED TRYING TO COMMUNICATE BY GESTURES.SEDATED ON PROPOFOL AT 10 MCG/KG/MIN RSS 4.CARDIAC SCOPE SHOWS SR WITH PVC'S.ON SAME VENT SETTING O2 SAT 96% RR 17.RIGHT IJ TLC WITH IVF D5NS AT 80 ML/H INFUSING VIA WHITE PORT AND PROPOFOL VIA BLUE PORT.OGT PATENT WITH NUTREN FEEDING AT 50 ML GOAL RATE WITH NO RESIDUALS,KEPT HOB ELEVATED.LLQ COLOSTOMY INTACT AND DRAINING DARK BROWN STOOL MODERATE AMOUNT.SCD AND Z-FLEX BOOTS INPLACE.REPOSITIONED Q 2H WITH PILLOW SUPPORT ON BACK.CALL LIGHT WITHIN REACH.
[2017-05-13 05:33] LABS: BASOPHIL % 0.3 % (0-2); PLATELET COUNT 335 x10^3mcL (130-400)
[2017-05-13 05:44] LABS: RED CELL DISTRIBUTION WIDTH 17.5 % (11.5-14.5)
[2017-05-13 05:47] LABS: CARBON DIOXIDE 37.2 mmol/L (21-32); CHLORIDE SERUM 105 mmol/L (98-107); CREATININE SERUM 1.1 mg/dL (0.7-1.3); GLUCOSE SERUM 119 mg/dL (74-106); MAGNESIUM 2.1 mg/dL (1.8-2.4); PHOSPHOROUS 4.3 mg/dL (2.5-4.9); POTASSIUM SERUM 3.3 mmol/L (3.5-5.1); SODIUM SERUM 144 mmol/L (136-145)
--- NOTE | 2017-05-13 05:56 | NUR ---
AM FULL BATH WITH PARTIAL LINEN CHANGE DONE.ORAL AND HUNTER CARE DONE PER PROTOCOL.PT SEEN BY UPDATED ON PTS STATUS.PT WANTING TO HAVE ETT OUT COMMUNICATING BY GESTURES.RIGHT FOOT DRESSING CLEAN AND INTACT ON Z-FLEX BOOTS.PUT OUT 80 ML OF STOOL VIA LLQ COLOSTOMY.
--- NOTE | 2017-05-13 07:10 | NUR ---
RECIEVED REPORT FROM HERMILA LEAVITT AT BEDSIDE. WILL RESUME CARE.
--- NOTE | 2017-05-13 07:30 | NUR ---
PT IS INTUBATED ETT TO VENT, SECURE AROUND FACE, OGT SECURE TO ETT TUBE. RIJ INTACT AND PATENT. NO SIGNS OF JVD. TRACHEA AT MIDLINE. FOUND PT ON PROPOFOL AT 10MCG/KG/MIN, RSS 4 PT REPONSE TO VERBAL STIMULIS AND FOLLOWS VERBAL COMMANDS. GCS 10. PT ON VCV 40%FIO2, RATE 16, VT 500, PEEP 5. LARGE WHITE OUTPUT FROM INLINE SUCTION. PROVIDED VAP CARE. DIMINISH LUNG SOUNDS TO BL LUNG PATEL. SYMMETRICAL CHEST RISE. BS ACTIVE X4 QUADRANTS, NONTENDER PALPATIONS TO ABD. COLOSTIMY BAG TO LUQ, ABD, DRAINING DARK BROWN SEMI FORMED BM. TRACE EDEMA TO BLE. DRESSING TO R HEEL IS CDI, Z FLEX BOOTS TO R FOOT. SCD TO BLE. PT ON NUTIRENT PULM AT 50ML/HR WITH FWF 40ML/Q4HRS. NO RESIDUALS IN STOMACH, TOLERATING WELL. HUNTER CATH DRAINING WELL BY GRAVITY, STRAW COLOR URINE. BED AT LOW AND CALL LIGHT WITHIN REACH.
--- NOTE | 2017-05-13 08:13 | NUR ---
TITRATED FIO2 TO 35%.
--- NOTE | 2017-05-13 08:15 | NUR ---
RT MARY AT BEDSIDE IMPLEMENTING BREATHING TX, TOLERATING WELL.
--- NOTE | 2017-05-13 08:39 | NUR ---
PLACED PT ON CPAP [address] PS[address] KASSANDRA GARCIA.
--- NOTE | 2017-05-13 08:39 | NUR ---
MARY RT AT BEDSIDE TO SWITCH TO CPAP. PROPOFOL AND TUBE FEED HAS BEEN TURNED OFF. PT TOLERATING CPAP WELL RR 17 VT 580 98% PO2SAT. WILL CONTINUE TO MONITOR.
--- NOTE | 2017-05-13 09:25 | NUR ---
DR. ORTA AT BEDSIDE UPDATING PLAN OF CARE.
[2017-05-13 10:43] LABS: RED BLOOD CELLS 2.45 M/mm3 (4.52-5.90)
--- NOTE | 2017-05-13 11:19 | NUR ---
MARY RT AT BEDSIDE, SUCTIONED TO CLEAR AIRWAY PRIO TO EXTUBATE. PT WAS EXTUBATED AND IS ABLE TO COUGH TO CLEAR AIRWAY BY SELF. S/P OF EXTUBATION PT IS SUCTIONED. PT RECIEVING 2LO2 VIA OSCAR, 94%OS2AT. SYMMETRICAL CHEST RISE. WILL CONTINUE TO MONITOR.
--- NOTE | 2017-05-13 11:26 | NUR ---
PT C/O OF R HEEL PAIN 5/10 WILL MEDICATE PER EMAR.
--- NOTE | 2017-05-13 11:52 | NUR ---
PT RESTING IN BED RECIEVING 2LO2 VIA OSCAR. PT IS ABLE TO COUGH OUT PHLEGM BY SELF AND USES SUCTION TO CLEAR MOUTH BY SELF. SYMMETRICAL CHEST RISE. DIMINISH LUNG SOUNDS TO BL UPPER LOBES AND FINE CRACKLES TO BL BASES. ENCOURAGE PT TO TURN, PT WAS ABLE TO PUSH SELF UP BY BENDING LEGS. BED AT LOW AND CALL LIGHT WITHIN REACH.
[2017-05-13 12:56] LABS: IRON 19 ug/dL (65-170); TOTAL IRON BINDING CAPACITY 150 ug/dL (250-450)
--- NOTE | 2017-05-13 13:30 | NUR ---
CENTRAL LINE DRESSING TO RIJ IS SOILED, CHANGED DRESSING WITH PROPER TECHNIQUES. NO SIGNS OF REDNESS TO SITE. NO SIGNS OF JVD. DRESSING TO RIJ IS CDI. BED AT LOW AND CALL LIGHT WITHIN REACH.
--- NOTE | 2017-05-13 14:21 | NUR ---
AT HIGH FOLWER'S POSITION PT WAS ABLE TO TOLERATE ICE CHIPS, PUDDING AND JUICE WITHOUT COUGHING. WILL CONTINUE TO MONITOR.
--- NOTE | 2017-05-13 15:28 | NUR ---
PT IS RESTING IN BED RECIEVING 2 L O2 VIA OSCAR. SYMMETRICAL CHEST RISE AND NO SIGNS OF SOB. FINE CRACKLE TO L BASE OF LUNG AND COARSE CRACKLE TO R BASE. PT REPOSITIONED SELF UNDER ENCOURAGEMENTS. BED AT LOW AND CALL LIGHT WITHIN REACH.
--- NOTE | 2017-05-13 15:55 | NUR ---
DR. CANNON AT BEDSIDE.
--- NOTE | 2017-05-13 16:40 | NUR ---
ANCOMYOCIN TROUGH 15.[address] WOODALL, PER [facility] TEXT IS SENT.VERIFIED WITH [facility]OOPTI PHARMACIST IT'S SAFE TO INFUSE VANCOMYCIN 750MG, PER TROOPTI THE DOSE IS HALF FROM YESTERDAY. WILL ADMINISTER VANCOMYACIN.
--- NOTE | 2017-05-13 19:10 | NUR ---
RECEIVED PT REPORT FROM TREE BLANTON. QUESTIONS AND CONCERNS ADDRESSED.
--- NOTE | 2017-05-13 20:25 | NUR ---
PT COMPLAINING OF 5/10 PAIN TO RIGHT HEEL. MEDICATED WITH TORADOL PRN. WILL REASSESS PT.
--- NOTE | 2017-05-13 20:28 | NUR ---
FAMILY AT BEDSIDE AT THIS TIME.
--- NOTE | 2017-05-13 20:38 | NUR ---
RT AT BEDSIDE TO ADMINISTER BREATHING TREATMENT.
--- NOTE | 2017-05-13 21:50 | NUR ---
RECEIVED PATIENT ON HOSPITAL BED ACCOMPANIED AT THIS TIME BY ANNEALING FURNACE OPERATOR AND RN. PATIENT OBSERVED WITH SLOW, SHALLOW BREATHING WITH OXYGEN VIA NASAL CANNULA @ 2LPM. LUNG SOUNDS ARE DIMINISHED BILATERALLY. S1, S2 AUSCULTATED. AT THE BEDSIDE: DR. ARMIJO, DR. PABLO, ANNEALING FURNACE OPERATOR FROM [facility] + RN FROM [facility], CHARGE NURSE EMMETT CALLAHAN RN, DELVIN RN, AND MYSELF. PATIENT TRANSFERRED TO ICU BED VIA DRAWSHEET METHOD FOB WITHOUT INCIDENT. PATIENT OXYGEN CONTINUUED ON 2L VIA NASAL CANNULA. PATIENT HOOKED UP TO MONITORING EQUIPMENT WITH IMMEDIATE VITAL SIGNS READING: TEMP 98.7 (AXILLARY), HR 91, BP 127/109 MAP 116, RR 11, O2 99% WT 110.9 KG PER BEDSCALE, HT 5'8. PATIENT WITH GCS 5; PATIENT DOES NOT OPEN EYES AT THIS TIME TO ANY STIMULI, PATIENT IS NONVERBAL, AND FLEXES TO PAINFUL STIMULI. PATIENT DOES NOT RESPOND TO QUESTIONS, PATIENT DOES NOT FOLLOW COMMANDS, A&OX0. PUPILS ARE 4MM AND SLUGGISH RESPONSE TO LIGHT BILATERALLY. SKIN IS WTT, DRY. PERIPHERAL PULSES ARE MODERATE TO BUE AND WEAK TO BLE. PASSIVE ROM X 4 EXTREMITIES. PATIENT'S ABDOMEN IS OBESE, SOFT, AND NONTENDER PER FLACC SCALE. HYPOACTIVE BOWEL SOUNDS X 4Q. NO VAGINAL DISCHARGE/NO LABIAL EDEMA NOTED. HOB ELEVATED, BED IN LOWEST POSITION, SIDE RAILS X 3, WILL AWAIT ORDERS AND CONTINUE TO MONITOR.
--- NOTE | 2017-05-13 22:45 | NUR ---
PT RECEIVED. PATIENT IS AOX4. ABLE TO VERBALIZE COMMANDS AND NEEDS. O2 SATURATING AT 96%. NO SIGNS OF RESPIRATORY DISTRESS. BP 102/67, MAP 85, HR 101, RR 18 OBSERVED. D5NS RUNNING AT 80ML/HR. TRACHEA MIDLINE. PUPILS 3MM BILATERALLY BRISK RESPONSE. NASAL CANNULA 2L. RIJ CDI AND PATENT INFUSING D5 NS INFUSING AT 80 ML/HR. SKIN COLOR CONSISTENT WITH ETHNICITY, CAP REFILL <3 SECONDS X4 EXTREMITIES. PULSES MODERATE IN UPPER EXTREMITIES. WEAK IN BILATERAL LOWER EXTREMITIES. SCDS IN PLACE, Z FLEX BOOTS IN PLACE. WOUND DRESSING NOTED TO RIGHT FOOT, CDI. ABLE TO TURN AND REPOSITION. GENERALIZED WEAKNESS REPORTED. FULL LIQUID DIET. COLOSTOMY TO LEFT LOWER QUADRANT UNFORMED STOOL. ACTIVE BOWEL SOUNDS X 4 QUADRANTS, NO DISTENTION/SOFT ABODMEN. HUNTER DRAINING TO GRAVITY CLEAR YELLOW URINE. NO PENILE DISCHARGE/ SCROTAL EDEMA. WILL CONTINUE TO MONITOR.
[2017-05-14 04:13] VITALS: BP 101/54
--- NOTE | 2017-05-14 04:15 | NUR ---
RT AT BEDSIDE TO ADMINISTER BREATHING TREATMENT.
--- NOTE | 2017-05-14 04:29 | NUR ---
PT IS RESTING COMFORTABLY IN BED, SATURATING AT 96%, NO RESPIRATORY DISTRESS. RT AT BED SIDE WITH BREATHING TREATMENTS. BED AT LOWEST SETTING, CALL LIGHT WITHIN REACH, WILL CONTINUE TO MONITOR.
--- NOTE | 2017-05-14 04:50 | NUR ---
BLACK TOP MACHINE OPERATOR AT BEDSIDE FOR MORNING LAB DRAW
[2017-05-14 05:19] LABS: BASOPHIL % 0.4 % (0-2); PLATELET COUNT 370 x10^3mcL (130-400)
[2017-05-14 05:20] LABS: CALCIUM 8.2 mg/dL (8.5-10.1); CARBON DIOXIDE 35.7 mmol/L (21-32); CHLORIDE SERUM 109 mmol/L (98-107); CREATININE SERUM 0.9 mg/dL (0.7-1.3); GLUCOSE SERUM 80 mg/dL (74-106); POTASSIUM SERUM 3.7 mmol/L (3.5-5.1); SODIUM SERUM 146 mmol/L (136-145)
--- NOTE | 2017-05-14 05:47 | NUR ---
DR. WOODALL AT BEDSIDE TO ASSESS THE PT, QUESTIONS AND CONCERNS ADDRESSED.
--- NOTE | 2017-05-14 07:25 | NUR ---
GAVE REPORT TO DAY SHIFT RN.
--- NOTE | 2017-05-14 07:42 | NUR ---
TELEPHONED PATIENT'S DAUGHTER GINA AND INFORMED HER PATIENT WILL BE TRANSFERRED TO [facility] AT THIS TIME.
--- NOTE | 2017-05-14 08:15 | NUR ---
RECIEVED PT FROM ED. PT IS AWAKE, ALERT, AND ORIENTED. HAS NO COMPLAINT OF PAIN, SOB, OR DIZZINESS. RESPONDS WELL TO QUESTION AND ANSWER. STILLAGUAMISH. DIMINISHED HELEN BASES ON 2LNC, SYMMETRICAL CHEST EXPANSION AND UNLABORED. ACTIVE BOWEL SOUNDS NOTED. NON DISTENDED ABDOMEN. LEFT COLOSTOMY BAG IN PLACE. R HEEL DRESSING IS CDI. Z FLEX BOOT IN PLACE. SIDE RAILS UP, CALL LIGHT WITHIN REACH, WILL CONTINUE TO MONITOR
--- NOTE | 2017-05-14 11:30 | NUR ---
PT'S ACCUCHECK SHOWED 115. NO COVERAGE
[2017-05-14 14:03] VITALS: BP 106/54
--- NOTE | 2017-05-14 15:25 | NUR ---
Follow-up Nutrition Assessment Dx:Right foot cellulitis Labs: (05/14) NA:146H, B, Ca:8.2L, H/H:7.5/23L Meds: Colace, Cozaar, D5 NS, Haldol, Humulin, Lactinex, Lasix, Theragran, Zofran Diet: Full liquid diet, pt was previously on TF of Nutren Pulmonary @50 ml/hr. 40ml q4hr. PO intake: (05/13) F:100% Weights: (05/11) 157#, 71.2kg (05/14) 167#76.3kg (weight increase possibly due to pt with equipemnt and blankets on bed. Pt appears closer to admit weight) Skin: right heel dressing CDI Edema: None Last BM: colostomy bag to LLQ with unformed stool Per progress note 05/14, pt with acute hypoxic respiratory failure possibly secondary to Aspiration Pneumonia S/P Intubation 05/10, s/p extubation 05/13, Metabolic Encephalopathy secondary to UTI, closed head injury s/p mechanical fall, CVA ruled out. Pt was extubated yesterday. Podiatry is providing dressing changes. During visit, observed pt laying in bed. Pt with no c/o N/V/D/C. Pt's chart with picture of right heel skin. Per pharmacist in charge owner, no debridement. Estimated Nutritional Needs based on actual BW:71.2kg Energy: 1775-2130kcal/day (25-30kcal/kg for maintenance) Protein: 71g/day (1.0g/kg for geriatric maintenace) Fluid:1420-1775ml/day (20-25ml/kg for CHF) or per doctor Nutrition Diagnosis 1. Inadequate enteral nutrition support related to low TF rate as evidenced by current TF only meeting 15% caloric needs and 19% protein needs (N/A , pt s/p extubation on PO diet) 2. Inadequate protein/energy intake related to full liquid diet as evidenced by current diet order does not meet pts est needs. Intervention 1. Recommend advance diet as tolerated to CCHO, cardiac due to pt with DM, CHF and HTN. Monitor/Evaluate Previous goal: TF to meet at least 75% est needs with tolerance (N/A) Goal: PO intake at least 75% of estimated needs and diet advancement Monitor: PO intake, diet adancement, Labs, GI function F/U in 3-5 days as moderate risk: 05/17-
--- NOTE | 2017-05-14 15:26 | NUR ---
1. Recommend advance diet as tolerated to CCHO, cardiac due to pt with DM, CHF and HTN.
--- NOTE | 2017-05-14 16:30 | NUR ---
PT'S ACCUCHECK SHOWED 190. 3 UNITS OF REG INSULIN GIVEN COVERAGE
[2017-05-14 17:18] VITALS: BP 111/88
--- NOTE | 2017-05-14 18:00 | NUR ---
PT ON BED, AWAKE, ALERT, AND ORIENTED. HAS NO COMPLAINT OF PAIN, SOB, OR DIZZINESS. RESPONDS WELL TO QUESTION AND ANSWER. WILL CONTINUE TO MONITOR
--- NOTE | 2017-05-14 19:50 | NUR ---
RECEIVED PT FROM AM NURSE. IN BED, EASILY AROUSABLE, A/O X3. WHEEZES/CRACKLES AUSCULTATED TO UPPER LOBES. ON NC AT 4L HUMIDIFIED 02, PO2 AT 99%. ON TELE 37, [place] WITH HR AT 101. BOWEL SOUNDS ACTIVE. COLOSTOMY TO LLQ, NO LEAKING NOTED. F/C IN PLACE, DRAINING DARK YELLOW URINE. GENERALIZED WEAKNESS TO ALL EXTREMITIES. Z-FLEX BOOTS IN PLACE TO BLE, WITH SCDS. DRESSING TO RLE, CDI. CENTRAL LINE TO [facility], INFUSING ORDERED. NO LEAKING/INFILTRATION NOTED. ALL LINES PATENT. IN NO ACUTE DISTRESS AT THIS TIME, CALL LIGHT IN REACH, BED IN LOWEST POSITION, WILL CONTINUE TO MONITOR.
[2017-05-14 21:51] VITALS: BP 131/68
--- NOTE | 2017-05-14 22:27 | NUR ---
PT C/O CHEST PAIN, NONRADIATING, UNABLE TO DESCRIBE. RT IN, PROVIDED BREATHING TX X2. ALSO C/O PAIN 12/08 TO RLE. PRN TORADOL GIVEN PER ORDER. REPORT TO DR. CASANOVA, STATED TO WAIT TO SEE IF TORADOL TAKES EFFECT, REPORT BACK IF STILL C/O CHEST PAIN. MD AWARE. WILL FOLLOW UP, WILL CONTINUE TO MONITOR.
--- NOTE | 2017-05-14 23:58 | NUR ---
PT STILL C/O CHEST PAIN NONRADIATING. STATES IT FEELS "ABOUT THE SAME". REPORT MADE TO DR. CASANOVA. AWARE. ORDER TO GIVE PRN NITRO PO AT THIS TIME. WILL CONTINUE TO MONITOR.
--- NOTE | 2017-05-15 00:23 | NUR ---
PT COUGHING UP SPUTUM. RT IN TO GIVE BREATHING TX AT THIS TIME. WILL CONTINUE TO MONITOR.
--- NOTE | 2017-05-15 01:40 | NUR ---
PT REQUEST FOR COUGH MEDICATION. REPORT TO DR. CASANOVA, WILL CONTINUE TO MONITOR THE PT.
[2017-05-15 05:42] VITALS: BP 131/70
[2017-05-15 06:19] LABS: CALCIUM 8.3 mg/dL (8.5-10.1); CARBON DIOXIDE 34.2 mmol/L (21-32); CHLORIDE SERUM 106 mmol/L (98-107); CREATININE SERUM 0.8 mg/dL (0.7-1.3); GLUCOSE SERUM 125 mg/dL (74-106); POTASSIUM SERUM 3.7 mmol/L (3.5-5.1); SODIUM SERUM 143 mmol/L (136-145)
--- NOTE | 2017-05-15 06:39 | NUR ---
PT IN BED, EASILY AROUSABLE, A/O X4. ON NC 4L HUMIDIFIED O2. NO ACUTE DISTRESS NOTED. CENTRAL LINE TO RIJ, ALL LINES PATENT. COLOSTOMY TO LLQ CLEANED AND CHANGED, STOMA PINK, SITE WARM AND INTACT. CHANGED DRESSING TO WOUND ON R HEEL PER MD ORDER. PATIENT TOLERATED WELL. VSS, WILL ENDORSE TO AM NURSE.
--- NOTE | 2017-05-15 07:50 | NUR ---
AWAKE,ALERT AND ABLE TO VERBALIZED NEEDS. CALL LIGHT W/ IN REACH.REQUIRES. MODERATE ASSIST W/ ADL NEEDS. FULL LIQUID DIET GHANSHYAM. WELL. DENIES N/V, HUNTER CATH. PATENT DRAINING YELLOW COLOR URINE ,COLOSTOMY BAG INPLACE NO BM NOTED AT THIS TIME. CONT. 02 AT 3 L N/C ON. HHN TX GIVEN BY R.T PROTOCOL.CONT. IV FLUIDS ORDERED. WILL CONT. PLAN OF CARE.
[2017-05-15 08:02] LABS: BASOPHIL % 0.4 % (0-2); PLATELET COUNT 379 x10^3mcL (130-400)
[2017-05-15 08:10] LABS: RED CELL DISTRIBUTION WIDTH 16.7 % (11.5-14.5)
--- NOTE | 2017-05-15 09:00 | NUR ---
DR. SHEA HERE W/ OTHER MEDICAL STAFFS MADE ROUNDS AND UPDATED PT. PLAN OF CARE.
[2017-05-15 09:35] VITALS: BP 136/68
[2017-05-15 13:55] VITALS: BP 138/63
[2017-05-15 17:20] VITALS: BP 150/66
--- NOTE | 2017-05-15 18:00 | NUR ---
DENIES PAIN THE WHOLE DAY.CONT. 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 CALL LIGHT W/ IN REACH.IV FLUIDS INFUSING WELL TO RT. IJ COLOSTOMY BAG INTACT NO BM NOTED
--- NOTE | 2017-05-15 19:41 | NUR ---
REC'D REPORT FROM DAY NURSE RN SIMIN. PT IS ALERT, AWAKE, ORIENTED AND ABLE TO MAKE NEEDS KNOWN. LAYING IN BED COMFORTABLY. NO DISTRESS NOTED. WHEEZING HEARD IN THE UPPER LOBES. NO SOB, ON 4L NC WITH HUMIDIFIED O2. TELE # 37. BREATHING EVEN AND UNLABORED. COLOSTOMY BAG NOTED ON THE LLQ. NO SIGNS OF LEAKING. HUNTER CATHETER IN PLACE DRAINING VIA GRAVITY. Z FLEX BOOTS IN PLACE TO BLE WITH SCDS. CENTRAL LINE TO RIJ, CDI, INFUSING WELL. CALL LIGHT WITHIN REACH. WILL PROCEED TO THE PLAN OF CARE.
[2017-05-15 22:01] VITALS: BP 128/68
--- NOTE | 2017-05-15 23:35 | NUR ---
ROUNDS MADE, PT IS SLEEPING WITH EYES CLOSED. NO RESP DISTRESS NOTED. WILL CONT TO MONITOR.
[2017-05-16] VITALS (7 sets, daily range): BP systolic 116–143; BP diastolic 62–79
--- NOTE | 2017-05-16 01:25 | NUR ---
ROUNDS MADE, PT IS SLEEPING AND RESTING WELL. NO DISTRESS NOTED. WILL CONT TO MONITOR.
--- NOTE | 2017-05-16 01:44 | NUR ---
DR CASANOVA IS AWARE OF THE H/H 7.7 AND 24.
--- NOTE | 2017-05-16 06:56 | NUR ---
PT SLEPT PERIODICALLY THROUGHOUT THE SHIFT. NO DISTRESS NOTED. DENIES PAIN. ALL NEEDS MET AND ATTENDED TO. NO SIGNIFICANT CHANGES NOTED. ROSA DUMONT, PATENT AND INTACT, CDI. WILL ENDORSE ALL CARE TO ONCOMING NURSE.
--- NOTE | 2017-05-16 07:55 | NUR ---
AWAKE,ALERT AND ABLE TO VERBALIZED NEEDS W/ PERIODS OF FORGETFULNESS AND CONFUSION,REQUIRES. MODERATE ASSIST. W/ ADL NEEDS, CALL LIGHT W/ IN REACH CONT. IV FLUIDS AND IV ANTIBIOTIC ORDERED. HUNTER CATH. PATENT AND DRAING YELLOW COLOR URINE TO OVERSIDE DRAINAGE.COLOSTOMG BAG LEFT LOWER ABD. DRAINING SMALL AMT. OF LOOSE STOOLS.RT. HEEL DECUB ULCER DRESSING CDI.Z FLEX BOOTS BLE INPLACE.TURN Q 2 HRS FOR COMFORT.CONT. 02 AT 4 L N/C ON W/ R.T PROTOCOL. NO ACUTE DISTRESS NOTED.WILL CONT. PLAN OF CARE.
--- NOTE | 2017-05-16 08:20 | NUR ---
DR. RIVERA HERE W/ OTHER MEDICAL STAFF MADE ROUNDS AND UPDATED PT. PLAN OF CARE.
--- NOTE | 2017-05-16 13:00 | NUR ---
PT. QUITE AND SLEEPT NOST OF THE DAY BUT PT. ARROUSABLE,NO ACUTE DISTRESS NOTED.
--- NOTE | 2017-05-16 17:00 | NUR ---
D/C HUNTER CATH ORDERED. .HUNTER CATH. OUTPUT OBTAINED 1150 CC YELLOW COLOR URINE
--- NOTE | 2017-05-16 19:45 | NUR ---
REC'D REPORT FROM DAY NURSE. PT IS ALERT, AWAKE, ORIENTED AND ABLE TO MAKE NEEDS KNOWN. LAYING IN BED WITH THE HOB ELEVATED. DENIES PAIN. NO RESP DISTRESS NOTED AT THIS TIME. NO SOB, ON 4L NC WITH HUMIDIFIED O2. WHEEZING HEARD IN THE UPPER LOBES. TELE# 37. BREATHING EVEN AND UNLABORED. ABD IS ROUND AND ACTIVE, COLOSTOMY BAG NOTED ON THE LLQ. NO SIGNS OF LEAKAGE. F/C DC. Z FLEX BOOTS IN PLACE TO BLE WITH SCDS. CENTRAL LINE TO ROHAN DUMONT. INFUSING WELL. CALL LIGHT WITHIN REACH. WILL PROCEED TO THE PLAN OF CARE.
--- NOTE | 2017-05-16 22:57 | NUR ---
ROUNDS MADE, PT IS AWAKE AND WATCHING TV. NO RESP DISTRESS NOTED. WILL CONT TO MONITOR.
[2017-05-17 05:15] VITALS: BP 119/68
--- NOTE | 2017-05-17 05:46 | NUR ---
ROUNDS MADE, PT IS AWAKE AT THIS TIME. NO RESP DISTRESS NOTED. WILL CONT TO MONITOR.
[2017-05-17 06:25] LABS: BASOPHIL % 0.4 % (0-2); CALCIUM 9.5 mg/dL (8.5-10.1); CHLORIDE SERUM 100 mmol/L (98-107); CREATININE SERUM 0.9 mg/dL (0.7-1.3); GLUCOSE SERUM 98 mg/dL (74-106); MAGNESIUM 1.6 mg/dL (1.8-2.4); PHOSPHOROUS 4.2 mg/dL (2.5-4.9); POTASSIUM SERUM 3.7 mmol/L (3.5-5.1); SODIUM SERUM 143 mmol/L (136-145)
--- NOTE | 2017-05-17 06:25 | NUR ---
PT HAD INTERVALS OF SLEEP THROUGHOUT THE NIGHT. NO RESP DISTRESS NOTED. DENIES PAIN. NO SIGNIFICANT CHANGES NOTED. ALL NEEDS MET AND ATTENDED TO. JULIA BHAGAT PATENT, CDI. WILL ENDORSE ALL CARE TO ONCOMING NURSE.
[2017-05-17 06:28] LABS: CARBON DIOXIDE 41.6 mmol/L (21-32)
[2017-05-17 06:40] LABS: PLATELET COUNT 466 x10^3mcL (130-400); RED CELL DISTRIBUTION WIDTH 16.9 % (11.5-14.5)
--- NOTE | 2017-05-17 07:55 | NUR ---
AWAKE,ALERT AND ABLE TO VERBALIZED NEEDS W/ PERIODS OF CONFUSION.REQUIRES MOD. ASSIST. W/ ADL NEEDS. INCONT. OF URINE. KEEP CLEAN AND DRY. RT. HEEL DRESSING CDI W/ Z FLEX BOOTS INPLACE TO BLE.TURN Q 2 HRS FOR COMFORT ,COLOSTOMY BAG INTACT DRAINING SMALL AMT. OF LOOSES STOOLS.COMT. IV FLUIDS AND IV ANTIBIOTIC ORDERED .NO ACUTE DISTRESS NOTED. WILL CONT. PLAN OF CARE.
--- NOTE | 2017-05-17 08:30 | NUR ---
DR. KANG HERE W/ OTHER MEDICAL STAFF MADE ROUNDS AND UPDATED PT. PLAN OF CARE.
[2017-05-17 09:32] VITALS: BP 144/75
--- NOTE | 2017-05-17 11:30 | NUR ---
PT. ASSISTED TO GET OUT OF BED TO CHAIR AT BEDSIDE.GHANSHYAM WELL FOR 2 HRS. VOIDING WELL IN URINAL W/ ENCOURAGEMENT INCONT. X 4 .KEEP CLEAN AND DRY.CALL LIGHT W/ IN REACH. NO ACUTE DISTRESS NOTED.
--- NOTE | 2017-05-17 14:50 | NUR ---
PT. VOIDING WELL IN URINAL ,DR. GERMAN NOTIFIED [facility] CATH. NOT INSERTED ,PT. REFUSED AND POSSIBLE D/C TO SNF WHEN BED AVAILABLE .DR. GERMAN MADE AWARE.CHARGE NURSE OBED NOTIFIED ALSO THAT HUNTER CATH. NOT INSERTED.
[2017-05-17 17:59] VITALS: BP 128/65
--- NOTE | 2017-05-17 19:20 | NUR ---
REC'D REPORT FROM DAY NURSE. PT IS IN BED ALERT, AWAKE, ORIENTED AND WATCHING TV. NO RESP DISTRESS NOTED. DENIES PAIN AT THIS TIME. TELE# 37. NO SOB, ON 4L NC WITH HUMIDIFIED 02. BREATHING EVEN AND UNLABORED. ABD IS ROUND AND ACTIVE, COLOSTOMY BAD NOTED ON THE LLQ. NO SIGNS OF LEAKAGE. Z FLEX BOOTS IN PLACE TO BLE WITH SCDS. CENTRAL LINE TO RIJ, CDI. INFUSING WELL. CALL LIGHT WITHIN REACH. WILL PROCEED TO THE PLAN OF CARE.
--- NOTE | 2017-05-17 20:00 | NUR ---
DR DEL TORO TALKING TO DAUGHTER ABOUT THE PATIENT'S PLAN OF CARE AND ANSWERING ALL QUESTIONS.
[2017-05-17 21:39] VITALS: BP 122/51
--- NOTE | 2017-05-17 21:42 | NUR ---
PT IS C/O HE NEEDS SOMETHING TO HELP HIM SLEEP. WILL BE GIVING AMBIEN.
--- NOTE | 2017-05-17 22:40 | NUR ---
ROUNDS MADE, PT IS SLEEPING AND RESTING COMFORTABLY. NO RESP DISTRESS NOTED. WILL CONT TO MONITOR.
--- NOTE | 2017-05-18 01:31 | NUR ---
ROUNDS MADE, REPOSITIONED AND CHANGED PT SHEETS. NO RESP DISTRESS NOTED. WILL CONT TO MONITOR.
[2017-05-18 06:25] VITALS: BP 131/73
--- NOTE | 2017-05-18 06:52 | NUR ---
PT HAD INTERVALS OF SLEPT THROUGHOUT THE NIGHT. NO RESP DISTRESS NOTED. DENIES PAIN. RIJ PATENT AND ROHAN, ROSA WIPE. ALL NEEDS MET AND ATTENDED TO. NO SIGNIFICANT CHANGES NOTED. WILL ENDORSE ALL CONTINUITY CARE TO ONCOMING NURSE.
[2017-05-18 07:20] LABS: CALCIUM 9.1 mg/dL (8.5-10.1); CHLORIDE SERUM 100 mmol/L (98-107); CREATININE SERUM 0.8 mg/dL (0.7-1.3); GLUCOSE SERUM 93 mg/dL (74-106); MAGNESIUM 1.7 mg/dL (1.8-2.4); POTASSIUM SERUM 3.3 mmol/L (3.5-5.1); SODIUM SERUM 143 mmol/L (136-145)
[2017-05-18 07:23] LABS: CARBON DIOXIDE 42.3 mmol/L (21-32)
--- NOTE | 2017-05-18 07:30 | NUR ---
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
[2017-05-18 07:45] LABS: BASOPHIL % 0.4 % (0-2)
[2017-05-18 07:59] LABS: RED CELL DISTRIBUTION WIDTH 16.5 % (11.5-14.5)
[2017-05-18 08:05] LABS: PLATELET COUNT 526 x10^3mcL (130-400)
--- NOTE | 2017-05-18 08:14 | NUR ---
AND MEDICINE TEAM AT BEDSIDE.INFORMED PT ABOUT THE PLAN OF CARE.PT WANTED TO GO HOME.DOES NOT WANT TO GO TO SNF.WILL D/C TODAY WITH HOME HEALTH.ALSO PT MAY SHOWER AND D/C TELE.
[2017-05-18 09:30] VITALS: BP 113/56
--- NOTE | 2017-05-18 11:30 | NUR ---
ATTEMPTED TO GET PT UP TO THE BATHROOM UNABLE TO GET UP AND WALK.VERY WEAK.WILL INFORM THE DOCTOR.
[2017-05-18] MEDS ORDERED: QUETIAPINE FUMA25 M1 PO (16:45)
[2017-05-18 16:58] VITALS: BP 113/56
--- NOTE | 2017-05-18 17:28 | NUR ---
INFORMED THE DAUGHTER ABOUT THE PT'S TRANSFER.PER DAUGHTER DOES NOT WANT PT TO BE TRANSFERRED IF HE IS NOT RECEIVING ANTIBIOTICS.INFORMED CHARGE NURSE.
--- NOTE | 2017-05-18 17:30 | NUR ---
CHARGE NURSE PAGE GATE .
[2017-05-18 17:40] VITALS: BP 127/67
--- NOTE | 2017-05-18 18:07 | NUR ---
GOT ORDERS FOR TRANSFER TO [facility].PAPER WORK COMPLETED.PT SIGNED CONSENT FOR TRANSFER.CALLED REPORT TO TREE ROJAS IN [facility].
--- NOTE | 2017-05-18 18:47 | NUR ---
NO SIGNIFICANT CHANGE NOTED.WILL ENDORSE TO NEXT SHIFT.
--- NOTE | 2017-05-18 19:30 | NUR ---
PT IS A/O x4. DENIES CHEST PAIN AND PRESSURE. PULSES PRESENT. NO EDEMA NOTED. LUNGS CLEAR IN ALL FEILDS. ON 4L NASAL WITH HUMIDIFIER, SPO2 AT 95%. FLEX BOOTS ON BOTH LEGS AND SCDS ON. COLOSTOMY ON LLQ, EMPTY AND INTACT. DRESSING ON R HEEL IS CLEAN AND INTACT. NO DRAINAGE NOTED. BED IN LOWEST SETTING. CALL LIGHT WIHTIN REACH. WILL CONTINUE TO MONITOR PT.
--- NOTE | 2017-05-18 20:35 | NUR ---
ESSIE IS HERE TO TRANSFER PT TO [facility] [place]. REPORT WAS GIVEN. PT IS CALM AND RESTING IN BED. IS ON THE WAY TO TALK TO PT. TRANSPORT AND PT. ON STANDBY FOR NOW.
[2017-05-18 21:12] VITALS: BP 129/71
--- NOTE | 2017-05-18 21:33 | NUR ---
PT IS REFUSING TRANSFER. DAUGHTER ROSIE WAS CONTACTED AND WAS INFORMED OF THE SITUATION. DAUGHTER SPOKE WITH THE PT. OVER THE PHONE AND PT STILL REFUSED. DR. WILLARD WAS CALLED AND SPOKE WITH THE PT. PT STILL REFUSED TRANSFER. TRANSPORTATION LEFT. DAUGHTER WAS NOTIFIED THAT PT WILL BE STAYING ANOTHER NIGHT. FAMILY MEMBER WILL BE COMING TOMORROW TO ASSIST WITH PT. WILL CONTIUE TO MONITOR PT.
--- NOTE | 2017-05-19 01:43 | NUR ---
PT IS SLEEPING IN BED. NO SIGN OF DISTRESS NOTED. FLEX BOOTS ON PT. DRESSING INTACT WITH NO DRAINAGE. BED IN LOWEST SETTING. CALL LIGHT WITHIN REACH. WILL CONTINUE TO MONITOR.
--- NOTE | 2017-05-19 05:17 | NUR ---
PT IS SLEEPING IN BED. NO SIGN OF DISTRESS NOTED. FLEX BOOTS ARE ON. DRESSING ON R HEEL INTACT AND NO DRAINAGE NOTED. COLONOSCOPY BAG INTACT WITH NO SIGN OF DRAINAGE. BED IN LOWEST SETTING. CALL LIGHT WIHTIN REACH. WILL ENDORSE TO AM NURSE.
[2017-05-19 06:13] VITALS: BP 128/68
[2017-05-19 06:40] LABS: BASOPHIL % 0.4 % (0-2)
[2017-05-19 07:10] LABS: CALCIUM 9.4 mg/dL (8.5-10.1); CHLORIDE SERUM 101 mmol/L (98-107); CREATININE SERUM 0.8 mg/dL (0.7-1.3); GLUCOSE SERUM 75 mg/dL (74-106); MAGNESIUM 1.8 mg/dL (1.8-2.4); POTASSIUM SERUM 3.4 mmol/L (3.5-5.1); SODIUM SERUM 146 mmol/L (136-145)
[2017-05-19 07:14] LABS: CARBON DIOXIDE 42.3 mmol/L (21-32)
--- NOTE | 2017-05-19 07:39 | NUR ---
AAO X4.DENIES ANY PAIN/DISCOMFORT.LUNGS CLEAR.ON 4 L 02.PT NON-TELE.NO IV.COLOSTOMY ON LLQ IN PLACE DRAINING BROWNISH STOOL.BLE WITH FLEX BOOT.R HEEL WITH DRESSING CDI.SCD ON.ON CONTACT ISOLATION FOR MRSA OF THE WOUND.CALL LIGHT WITHIN REACH.INSTRUCTED TO CALL FOR ANY PAIN/DISCOMFORT.WILL CONTINUE TO MONITOR PT.
--- NOTE | 2017-05-19 08:07 | NUR ---
AND MEDICINE TEAM AT BEDSIDE.INFORMED PT ABOUT THE PLAN OF CARE.WILL GO TO SNF TODAY.OFFENDER EMPLOYMENT SPECIALIST PROVIDED FOR BETTER UNDERSTANDING.
[2017-05-19 08:31] LABS: PLATELET COUNT 518 x10^3mcL (130-400); RED CELL DISTRIBUTION WIDTH 17.1 % (11.5-14.5)
[2017-05-19 08:36] VITALS: BP 121/59
--- NOTE | 2017-05-19 09:00 | NUR ---
SISTER CAME TO TALK TO PT TO GO TO SNF.
--- NOTE | 2017-05-19 09:30 | NUR ---
INFORMED BY PT'S SISTER CJ PT REFUED TO GO TO SNF.BUT SISTER AND DAUGHTER WANTS PT TO GO HOME BECAUSE THEIR NOT ABLE TO TAKE CARE OF THE BROTHER.WILL INFORM .
[2017-05-19 13:46] VITALS: BP 121/59
--- NOTE | 2017-05-19 13:49 | NUR ---
WENT TO TALK TO PT AGAIN.ACCESS SPEC PROVIDED FOR BETTER UNDERSTANDING.PT FINALLY AGREED TO BE TRANSFERRED.INFORMED CASE ROSA MARIA KINSEY AND TERENCE LAWRENCE.
[2017-05-19 14:05] VITALS: BP 96/55
--- NOTE | 2017-05-19 14:06 | NUR ---
PHYSICAL THERAPY DAILY NOTES CO-SIGN All documentation done by the Visual Merchandiser for 05/19/17 has been reviewed. I agree with the documentation. Reviewed/Co-Signed by: Katelin Everett DPT Documentation Done by:PRICE CHILDS PTA I CONCUR WITH GRINDING WHEEL FACER NOTES. PATIENT IS MAKING STEADY PROGRESS IN THERAPY. CONTINUE W/POC TO PATIENT'S TOLERANCE.
[2017-05-19] MEDS ORDERED: QUETIAPINE FUMA25 M1 PO (14:10)
--- NOTE | 2017-05-19 14:11 | NUR ---
1. Recommend continue with CCHO diet.
--- NOTE | 2017-05-19 14:11 | NUR ---
Follow-up Nutrition Assessment Dx:Right foot cellulitis Labs:( (05/19) Na:146H, K:3.4L, B, H/H:02/26L Meds: Antivert, Colace, Cozaar, Flomax, Humulin, Lactinex, Lasix, Lopressor, NS IV, Theragran, Zofran Diet: CCHO PO intake: (05/15) Full liquid B:100% (05/16) Full liquid B:100% D:100% (05/17) CCHO L:0%, D:0% (05/18) B:100% (05/19) B:100% Weights: (05/11) 157# (05/14)167# (05/19)157# Skin: right heel ulcer Edema: None Last BM: 05/18 Per progress note 05/18, Patient seen by Dr. Maciel. Can DC zosyn because he had 10 days of treatment for UTI. 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 Patient does not require isolation or any IV abx. Patient only able to walk 16 ft with PT today. CM notified, still pending placement to SNF for wound care and PT. Although patient wants to go home, his daughter does not feel she can take care of him anymore. Per bed huddle this morning, pt needs to discharge to nursing facility but the pt does not want to. Awaiting for pt's daughter to discuss patients discharge plan. During visit, observed pt laying in bed. Pt continues with good appetite with no c/o GI issues. Per RN note 05/19, pt finally agress to be transferred. Estimated Nutritional Needs unchanged from prior assessment:actual BW:71kg Energy: 1775-2130kcal/day (25-30kcal/kg for maintenance) Protein:71g/day (1g/kg for geriatric maintenance) Fluid: 1420-1775ml/day (20-25ml/kg for CHF) or per doctor Nutrition Diagnosis 1. Inadequate protein/energy intake related to full liquid diet as evidenced by current diet order does not meet pts estimated needs (resolved, pt on CCHO) Intervention 1. Recommend continue with CCHO diet. Monitor/Evaluate Previous goal: PO intake to meet 75% est needs and diet advancement (met) Goal: PO intake at least 75% of estimated needs Monitor: PO intake, Labs, GI function F/U in 7 days as low risk: 05/26
--- NOTE | 2017-05-19 14:52 | NUR ---
UPDATED PAPERWORK.PT SIGNED CONSENT FOR TRANSFER.ALSO CLEANED WOUND AND CHANGE DRESSING.CALLED REPORT TO TREE ROJAS IN [facility].ALSO CALLED DAUGHTER TO INFORM HER OF THE TRANSFER.
--- NOTE | 2017-05-19 15:02 | NUR ---
TRIED TO GET A HOLD OF THE DAUGHTER.NO ANSWER.COULD NOT LEAVE A MESSAGE.TALK TO PT SISTER CJ.INFORMED HER OF THE TRANSFER.
--- NOTE | 2017-05-19 15:56 | NUR ---
[facility] HERE TO SERVICE EMPLOYEE PT. GAVE REPORT TO PAID ATTENDANT.WENT DOWN VIA [facility] ACCOMPANIED BY PAID ATTENDANTS.
== END 2017-05-19 16:07 | DRG 299 ==
LOC: ED 19:29 → IC 21:52 → DU 21:52 → IC 05-10 22:38 → DU 05-14 07:53 → MU 05-18 11:33
PROVIDERS: Emergency Medicine; Family Medicine; Student in an Organized Health Care Education/Training Program; ADMIT Family Medicine
PROC: 5A1945Z Respiratory Ventilation, 24-96 Consecutive Hours (ICD-10-PCS; principal; 2017-05-11)
PROC: 0BH17EZ Insertion of Endotracheal Airway into Trachea, Via Natural or Artificial Opening (ICD-10-PCS; 2017-05-11)
PROC: 05HM33Z Insertion of Infusion Device into Right Internal Jugular Vein, Percutaneous Approach (ICD-10-PCS; 2017-05-11)
PROC: B543ZZA Ultrasonography of Right Jugular Veins, Guidance (ICD-10-PCS; 2017-05-11)
DX: I96 Gangrene, not elsewhere classified (principal); G93.41 Metabolic encephalopathy; J69.0 Pneumonitis due to inhalation of food and vomit; J96.01 Acute respiratory failure with hypoxia; I50.43 Acute on chronic combined systolic (congestive) and diastolic (congestive) heart failure; E43 Unspecified severe protein-calorie malnutrition; N17.0 Acute kidney failure with tubular necrosis; N39.0 Urinary tract infection, site not specified; L89.619 Pressure ulcer of right heel, unspecified stage; B96.5 Pseudomonas (aeruginosa) (mallei) (pseudomallei) as the cause of diseases classified elsewhere; R31.9 Hematuria, unspecified; S09.90XA Unspecified injury of head, initial encounter; I11.0 Hypertensive heart disease with heart failure; J44.9 Chronic obstructive pulmonary disease, unspecified; E11.51 Type 2 diabetes mellitus with diabetic peripheral angiopathy without gangrene; E11.40 Type 2 diabetes mellitus with diabetic neuropathy, unspecified; M47.896 Other spondylosis, lumbar region; F32.9 Major depressive disorder, single episode, unspecified; Z93.3 Colostomy status; Z79.4 Long term (current) use of insulin; Z79.52 Long term (current) use of systemic steroids; Z79.82 Long term (current) use of aspirin; Z68.23 Body mass index [BMI] 23.0-23.9, adult; Z87.891 Personal history of nicotine dependence; Z22.322 Carrier or suspected carrier of Methicillin resistant Staphylococcus aureus; W18.39XA Other fall on same level, initial encounter; Y92.003 Bedroom of unspecified non-institutional (private) residence as the place of occurrence of the external cause
CPT/HCPCS: 36556; 36600; 83880; 84439; 87046; 87046-59; 87107; 94150; 97110-GP; 97116-GP; 97164; 97530-GP; A4371; A4628; J0330; J1630; J1642; J1885; J2543; J2704; J3370; J3475; J3480; J3490; J7030; J7042; J7620; J7626; Q0092